=== PATIENT | female | born 1975 | race Caucasian/White ===

== ENCOUNTER → 2021-01-16 | Outpatient (CLI) | payer OTHER ==
[2018-04-05 15:00] VITALS: BP 93/68
[~2021-01-16] MED LIST: LEVO50TA5; OXYC1TAB7 PO; PANT40VI IVP
--- NOTE | 2021-01-16 18:32 | KCIC ---
BILATERAL SCREENING MAMMOGRAM, 3-D History: Routine screening. Comparison: None. This is a baseline examination. Technique: MLO and CC digital tomosynthesis (3D) images obtained. Radiologist reviewed these images on dedicated workstation. Findings: Breast Tissue Density B : There are scattered areas of fibroglandular density. There is a small nodular asymmetry or small mass in the inner right breast at mid depth, probable cor relate is seen along the nipple line on the MLO view. There is a nodular asymmetry of the lower inner right breast at posterior depth probably due to the 5:00 C position. There is a tiny nodular asymmet ry just inferior to the nipple line posteriorly on the left MLO view without correlate on the CC view . There are no suspicious microcalcifications or architectural distortion. IMPRESSION: 1. Small nodular asymmetries of the right breast probably near the 2:30 B and 5:00 C positions. 2. Tiny nodular asymmetry of the posterior left breast just inferior to the nipple line on MLO view only. 3. Recommend further evaluation with bilateral spot compression MLO digital views and spot compressi on right CC view and bilateral breast ultrasound. BI-RADS Category 0: Incomplete: Need additional imaging evaluation. The images were reviewed with computer-aided detection. Patient information is entered into reminder system with a target due date for the next screening [facility] mogram. Mammography is the most sensitive method for finding small breast cancers, but it does not detect the m all and is not a substitute for careful clinical examination. A negative mammogram does not negate a clinically suspicious finding and should not result in delay in biopsying a clinically suspicious a bnormality. "Our facility is accredited by the [employer] Mammography [employer]." Electronically signed by: Carlos Cano MD (01/16/2021 6:29 PM) [facility]
== END ==
LOC: KCIC MAMMO 13:09
PROVIDERS: ATTEND Advanced Practice Midwife
DX: Z12.31 Encounter for screening mammogram for malignant neoplasm of breast (principal); N64.89 Other specified disorders of breast
CPT/HCPCS: 77067

== ENCOUNTER → 2021-01-29 | Outpatient (CLI) | payer OTHER ==
[2018-04-05 15:00] VITALS: BP 93/68
--- NOTE | 2021-01-29 11:47 | KCIC ---
Bilateral diagnostic digital mammograms: Reason for examination: Parenchymal densities on screening mammogram. Comparison is made to mammographic exam dated 01/16/2021. Cone compression views were obtained in CC and oblique projections bilaterally in the areas of mammog raphic concern. There continue to be small nodular densities in the right breast at approximately the 3:00 B position and at the 5:00 C position. In the left breast, the nodularity is not as apparent with the coned vie ws and may represent some superimposed tissue. IMPRESSION: Small nodular densities at the 3:00 B and 5:00 C positions of the right breast. No definite abnormali ty seen with the additional views of the left breast. Ultrasound to follow. BI-RADS Category 0: Incomplete. Needs additional imaging evaluation. Bilateral breast ultrasound: Ultrasound examination was performed in the areas of mammographic concern and at the axilla bilateral ly. In the right breast, there is a small 5.6 mm hypoechoic fibrocystic type lesion at the 3:00 position 7 cm from the nipple. There is a 7.5 mm hypoechoic fibrocystic type lesion at the 3:00 position 9 cm from the nipple. There is a 8.8 mm hypoechoic fibrocystic lesion at the 5:00 position 10 cm from the nipple. There is also a 5.6 mm fibrocystic lesion at the 4:30 position 9 cm from the nipple. No suspi cious-appearing nodules are seen. No abnormal appearing lymph nodes are seen in the right axilla. In the left breast, no discrete cystic or solid nodules are identified. No abnormal appearing lymph n odes are seen in the left axilla. IMPRESSION: Several benign-appearing fibrocystic lesions in the right breast with the lesions at the 3:00 and 5:0 0 positions corresponding to mammographic findings. No focal abnormality seen in the left breast. Rec ommend 6 month follow-up with bilateral breast mammograms and ultrasound. BI-RADS Category 3: Probably Benign. "Our facility is accredited by the [employer] Mammography Program." This patient's information has been entered into a reminder system for the patient to be notified wit h the results of her examination and a target date for the next mammogram. Electronically signed by: Hiral Shah MD (01/29/2021 11:44 AM) [facility]
== END ==
LOC: KCIC US 09:09
PROVIDERS: ATTEND Advanced Practice Midwife
DX: R92.8 Other abnormal and inconclusive findings on diagnostic imaging of breast (principal); N63.14 Unspecified lump in the right breast, lower inner quadrant
CPT/HCPCS: 76641; 77066